=== PATIENT | male | born 1960 | race Caucasian/White ===

== ENCOUNTER 2020-04-02 12:48 | Inpatient (IN) ==
[~2020-04-02 12:48] MED LIST: Povidone-Iodine 45 ML, Sodium Chloride IRRigation 1,000 ML IR ONE
[2020-04-02] MEDS ORDERED: CeFAZolin Syr 2,000MG/20 ML 2,000 MG/20 ML SYRINGE IVPB ONE (13:25)
[2020-04-02] MEDS ORDERED: Ringers Solution, Lactated 1,000 ML IVC SCH ×2 (13:30→16:31)
[2020-04-02] MEDS ORDERED: *HR* Propofol 200 MG/20 ML VIAL IVP ONE (14:01)
[2020-04-02] MEDS ORDERED: Dexamethasone 4 MG/ML VIAL ONE (14:02)
[2020-04-02] MEDS ORDERED: *HR* Succinylcholine 200 MG/10 ML VIAL IVP ONE (14:02)
[2020-04-02] MEDS ORDERED: Lidocaine -MPF 2% 2 ML VIAL ONE (14:02)
[2020-04-02] MEDS ORDERED: Ondansetron 4 MG/2 ML VIAL ONE (14:02)
[2020-04-02] MEDS ORDERED: Ropivacaine/PF 0.5% 30 ML VIAL ONE (14:34)
[2020-04-02] MEDS ORDERED: *HR* Midazolam HCl 2 MG/2 ML VIAL ONE (14:35)
[2020-04-02] MEDS ORDERED: ROPIVACAINE/PF/NS 0.25% 1 EACH SYRINGE INTRAART ONE (14:35)
[2020-04-02] MEDS ORDERED: *HR* FentaNYL (PF) 100 MCG/2 ML VIAL ONE ×2 (14:35→15:16)
[2020-04-02] MEDS ORDERED: Ethanol\\Acetic Acid\\Na Ace\\Ben 1,000 ML IRRIG.SOLN IR ONE (14:41)
[2020-04-02] MEDS ORDERED: Vancomycin 1,000 MG VIAL ONE (14:41)
[2020-04-02] MEDS ORDERED: Povidone-Iodine 45 ML, Sodium Chloride IRRigation 1,000 ML IR ONE (15:05)
[2020-04-02] MEDS ORDERED: EPHEDrine 50 MG/ML VIAL ONE (15:15)
[2020-04-02] MEDS ORDERED: *HR* HYDROmorphone PF 0.5 MG/0.5 ML SYRINGE IVP PRN (16:31)
[2020-04-02] MEDS ORDERED: Promethazine 6.25 MG in Water for inj. (sterile) 20 ML IVPB PRN (16:31)
[2020-04-02] MEDS ORDERED: Sennosides 8.6 MG TABLET PO PRN (16:31)
[2020-04-02] MEDS ORDERED: Gabapentin 300 MG CAPSULE PO PRN (16:31)
[2020-04-02] MEDS ORDERED: D5% in Water 1,000 ML IVC PRN (16:31)
[2020-04-02] MEDS ORDERED: Ondansetron 4 MG/2 ML VIAL IVP PRN ×2 (16:31)
[2020-04-02] MEDS ORDERED: MOM Conc 10 ML UD.LIQ PO PRN (16:31)
[2020-04-02] MEDS ORDERED: *HR* Dextrose 50 % in Water (Vial) 50 ML VIAL IVP PRN (16:31)
[2020-04-02] MEDS ORDERED: Aspirin 325 MG TABLET PO PRN (16:31)
[2020-04-02] MEDS ORDERED: *HR* OxyCODONE Immed Rel 5 MG TABLET PO PRN (16:31)
[2020-04-02] MEDS ORDERED: Dextrose Gel 15 GM/37.5 ML TUBE PO PRN ×2 (16:31)
[2020-04-02 16:48] LABS: Hematocrit 44.4 % (37.5-50.1); Hemoglobin 13.9 g/dL (12.9-16.9)
[2020-04-02] MEDS ORDERED: *HR* Enoxaparin 30 MG/0.3 ML SYRINGE SQ SCH (18:00)
[2020-04-02] MEDS: Insulin LISPRO 300 UNITS/3 ML VIAL SUBQ SCH (20:31)
[2020-04-02] MEDS: *HR* Enoxaparin 30 MG/0.3 ML SYRINGE SQ SCH (20:41)
[2020-04-02] MEDS ORDERED: Insulin LISPRO 300 UNITS/3 ML VIAL SUBQ SCH (21:00)
[2020-04-02] MEDS: CeFAZolin 2 GM/120 ML BAG IVPB SCH (23:05)
[2020-04-03] MEDS: *HR* Enoxaparin 30 MG/0.3 ML SYRINGE SQ SCH (05:57)
[2020-04-03] MEDS: CeFAZolin 2 GM/120 ML BAG IVPB SCH (05:57)
[2020-04-03 07:13] VITALS: BP 126/84
[2020-04-03] MEDS: Insulin LISPRO 300 UNITS/3 ML VIAL SUBQ SCH (09:37)
[2020-04-03] MEDS ORDERED: Acetaminophen 325 MG TABLET PO ONE (09:56)
== END 2020-04-03 10:40 | disposition home or self-care (01) | DRG 483 ==
LOC: SAMDAY 12:48 → 3NENU 16:31
PROVIDERS: ADMIT Orthopaedic Surgery; ATTEND Orthopaedic Surgery